=== PATIENT | female | born 1980 | race Caucasian/White ===

== ENCOUNTER 2023-11-22 14:47 | Emergency (ER) | payer OTHER ==
[~2023-11-22] VITALS: Ht 172.7 cm; Wt 61.2 kg
[2023-11-22] MEDS: IV NORMAL SALINE 1000 ML BAG IV ONE (15:28)
[2023-11-22 16:31] LABS: BASOPHILS % (AUTO) 0.2 % (0.0-2.0); HEMATOCRIT 35.6 % (31.2-41.9); HEMOGLOBIN 12.5 g/dL (10.9-14.3); LYMPHOCYTES # (AUTO) 0.6 K/uL (0.8-4.8); LYMPHOCYTES % (AUTO) 4.4 % (20.5-51.5); MEAN CORPUSCULAR HEMOGLOBIN 31.2 uug (24.7-32.8); MEAN CORPUSCULAR HGB CONC 35 g/dL (32.3-35.6); MEAN CORPUSCULAR VOLUME 88.8 fL (75.5-95.3); MONOCYTES # (AUTO) 0.7 K/uL (0.1-1.30); MONOCYTES % (AUTO) 4.7 % (0.0-11.0); NEUTROPHILS # (AUTO) 13.3 K/uL (1.8-8.9); NEUTROPHILS % (AUTO) 90.7 % (38.5-71.5); PLATELET COUNT (AUTO) 204 K/uL (179-408); RED BLOOD CELL COUNT(AUTO) 4.02 MIL/uL (3.63-4.92); RED CELL DISTRIBUTION WIDTH 12.7 % (12.3-17.7); WHITE BLOOD COUNT (AUTO) 14.7 K/uL (3.8-11.8)
[2023-11-22 16:33] LABS: DIFFERENTIAL COMMENT 1
[2023-11-22 16:40] LABS: CALCIUM 9.3 mg/dL (8.5-10.1); CARBON DIOXIDE 22 mmol/L (21-32); CHLORIDE 107 mmol/L (98-107); CREATININE 0.9 mg/dL (0.6-1.3); GLUCOSE 181 mg/dL (74-106); SODIUM SERUM 141 mmol/L (136-145); UREA NITROGEN, BLOOD 14 mg/dL (7-18)
[2023-11-22 16:48] LABS: ALANINE AMINOTRANSFERASE 24 U/L (14-59); ALBUMIN 4.1 g/dL (3.4-5.0); ALKALINE PHOSPHATASE 45 U/L (50-136); ASPARTATE AMINOTRANSFERASE 12 U/L (15-37); BILIRUBIN,DIRECT 0.2 mg/dL (0.0-0.2); BILIRUBIN,TOTAL 1.3 mg/dL (0.2-1.0); TOTAL PROTEIN, SERUM 7.2 g/dL (6.4-8.2)
[2023-11-22 17:08] LABS: MAGNESIUM 1.7 mg/dL (1.8-2.4)
[2023-11-22] MEDS ORDERED: ONDA4TAB5 PO (17:26)
[2023-11-22] MEDS: IV NS 1000 ML 1,000 ML IV ONE (17:31)
[2023-11-22 17:57] LABS: *BILIRUBIN,URIN NEGATIVE (NEGATIVE); *BLOOD, URINE NEGATIVE (NEGATIVE); *COLOR,URINE YELLOW (YELLOW); *KETONES,URINE 4+ (NEGATIVE); *PROTEIN,URINE 1+ (NEGATIVE); *UROBILINOGEN,URINE 0.2 E.U./dl (NORMAL); LEUKOCYTE ESTERASE ,URINE TRACE (NEGATIVE); NITRITE, URINE NEGATIVE (NEGATIVE); UGLUCOSE NEGATIVE (NEGATIVE)
[2023-11-22 18:03] LABS: *CLARITY,URINE HAZY (CLEAR)
[2023-11-22 18:13] LABS: *URINE HCG, QUAL NEGATIVE (NEGATIVE)
[2023-11-22 18:17] LABS: BACTERIA,URINE FEW /HPF (NONE SEEN); RBC,URINE 0-3 /HPF (0-3); SQUAMOUS EPITHELIAL CELL,UR MANY /HPF (NONE SEEN)
[2023-11-22 18:25] VITALS: BP 119/70; O2SAT 99
== END 2023-11-22 18:24 | disposition home or self-care (01) ==
LOC: ER 14:49
DX: R10.30 Lower abdominal pain, unspecified (principal); D72.0 Genetic anomalies of leukocytes; D72.810 Lymphocytopenia; E83.42 Hypomagnesemia; R11.2 Nausea with vomiting, unspecified; Z79.899 Other long term (current) drug therapy; Z88.5 Allergy status to narcotic agent; Z88.1 Allergy status to other antibiotic agents
CPT/HCPCS: 99285; 96360; 71045; 96361; 80076; 80048; 81001; 82607; 84703; 83735; 85025; 84484; 36415; 93005; 82533; 83605; J7040 ×2; A4606; A4663